=== PATIENT | male | born 1955 | race Caucasian/White ===

== ENCOUNTER 2017-09-03 14:02 | Emergency (ER) | payer MEDICARE, MEDICAID ==
[~2017-09-03] VITALS: Ht 167.6 cm; Wt 75.0 kg
[2017-09-03 14:42] LABS: HEMATOCRIT 43.6 % (39.2-51.8); HEMOGLOBIN 14.9 g/dL (13.7-18.0); WHITE BLOOD COUNT 8.2 x10^3/uL (3.4-10)
[2017-09-03 14:47] LABS: ASPARTATE AMINO TRANSFERASE 23 U/L (15-37); BLOOD UREA NITROGEN 19 mg/dL (7-18)
[2017-09-03 18:05] VITALS: BP 135/90
[2017-09-03] MEDS ORDERED: LISI-167 PO (18:30)
== END 2017-09-03 18:10 | disposition home or self-care (01) ==
LOC: ED 16:56
DX: N30.01 Acute cystitis with hematuria (principal); I10 Essential (primary) hypertension
CPT/HCPCS: 36415; 80053; 81001; 85025; 87077; 87086; 99284

== ENCOUNTER 2018-10-25 13:01 | Observation (INO) | payer MEDICARE, MEDICAID ==
[~2018-10-25] VITALS: Ht 172.7 cm; Wt 71.9 kg
[~2018-10-25 13:01] MED LIST: LISI-167 PO
[2018-10-25] MEDS ORDERED: SODIUM CHLORIDE FLUSH 10ML SYR IVF ONE (13:30)
[2018-10-25] MEDS ORDERED: NITROGLYCERIN SINGLE TAB 0.4 MG SL PRN (13:30)
[2018-10-25] MEDS ORDERED: ASPIRIN 81 MG TABLET CHEW PO ONE (13:30)
--- NOTE | 2018-10-25 13:39 | NUR ---
PT DENIES CP BUT POINTS TO HIS NECK SAYING IT IS SORE AT THIS TIME. PT ON MONITOR. EKG BEING REPEATED.
[2018-10-25] MEDS ORDERED: ASPIRIN 81 MG TABLET EC ONE (13:41)
[2018-10-25] MEDS ORDERED: ASPIRIN 81 MG TABLET CHEW ONE (13:42)
--- NOTE | 2018-10-25 13:50 | NUR ---
PT BIB [facility] AFTER CALLING [facility]D AND WAS TOLD TO COME TO ER FOR PT'S SYMPTOMS OF CP SINCE YESTERDAY.
[2018-10-25 14:13] LABS: BASOPHILS # (AUTO) 0.11 x10^3/uL (0-0.1); BASOPHILS % (AUTO) 2 % (0-1); EOSINOPHILS # (AUTO) 0.22 x10^3/uL (0-0.4); EOSINOPHILS % (AUTO) 3 % (1-7); LYMPHOCYTES # (AUTO) 2.25 x10^3/uL (1-3.4); LYMPHOCYTES % (AUTO) 29 % (22-44); MD NO; MEAN CORPUSCULAR HEMOGLOBIN 29.9 pg (27.5-34.5); MEAN CORPUSCULAR HGB CONC 33.2 g/dL (33.2-36.2); MEAN PLATELET VOLUME 7.3 fL (7.4-10.4); MONOCYTES # (AUTO) 0.48 x10^3/uL (0.2-0.8); MONOCYTES % (AUTO) 6 % (2-9); NEUTROPHILS # (AUTO) 4.68 x10^3/uL (1.8-6.8); NEUTROPHILS % (AUTO) 61 % (42-75); PLATELET COUNT 263 x10^3/uL (130-400); RED BLOOD COUNT 4.71 x10^6/uL (4.38-5.82); RED CELL DISTRIBUTION WIDTH 13.5 % (9.4-14.8)
[2018-10-25 14:20] LABS: ALANINE AMINOTRANSFERASE 20 U/L (12-78); ALBUMIN 4.3 g/dL (3.4-5.0); ANION GAP 8 mmol/L (5-15); CALCIUM 9.2 mg/dL (8.5-10.1); CHLORIDE 105 mmol/L (98-107); CREATININE 1.02 mg/dL (0.7-1.3)
[2018-10-25 14:25] LABS: ALKALINE PHOSPHATASE 62 U/L (45-117); BILIRUBIN,TOTAL 0.5 mg/dL (0.2-1.0); TOTAL PROTEIN 7.8 g/dL (6.4-8.2); TROPONIN I < 0.015 ng/mL (0.000-0.045)
[2018-10-25 14:44] LABS: D-DIMER < 0.19 ug/mlFEU (0.00-0.52); INTERNATIONAL NORMALIZED RATIO 1.02 (0.93-1.1); PARTIAL THROMBOPLASTIN TIME 29 Seconds (25-31); PROTHROMBIN TIME 10.8 Seconds (9.6-11.5)
--- NOTE | 2018-10-25 15:05 | NUR ---
CHART UP FOR MD RECHECK. PT AWARE AND CAREGIVER AWARE.
[2018-10-25] MEDS ORDERED: SODIUM CHLORIDE FLUSH 10ML SYR IVF PRN (15:30)
[2018-10-25] MEDS ORDERED: ONDANSETRON ODT 4 MG PO PRN (16:00)
[2018-10-25] MEDS ORDERED: DOCUSATE 100 MG CAPSULE PO PRN (16:00)
[2018-10-25] MEDS ORDERED: ACETAMINOPHEN 325 MG TABLET PO PRN (16:00)
[2018-10-25] MEDS ORDERED: ONDANSETRON 2MG/ML, 2ML IVPush PRN (16:00)
[2018-10-25] MEDS ORDERED: ENALAPRILAT 1.25 MG/ML, 2ML IVPush PRN (16:00)
[2018-10-25] MEDS ORDERED: MAALOX/HYOSCYAMINE/LIDOCAINE 45 ML BTL PO ONE (16:00)
[2018-10-25] MEDS ORDERED: POLYETHYLENE GLYCOL 17 GM PACKET PO PRN (16:00)
[2018-10-25] MEDS ORDERED: BISACODYL 10 MG SUPP PR PRN (16:00)
[2018-10-25] MEDS ORDERED: ENOXAPARIN 40 MG/0.4 ML ONE (16:08)
[2018-10-25] MEDS ORDERED: MAALOX/HYOSCYAMINE/LIDOCAINE 45 ML BTL ONE (16:08)
[2018-10-25] MEDS: ENOXAPARIN 40 MG/0.4 ML SQ SCH (16:14)
[2018-10-25 16:32] LABS: THYROID STIMULATING HORMONE 0.66 mIU/L (0.358-3.740)
--- NOTE | 2018-10-25 16:55 | NUR ---
PT UP TO RESTROOM WITH STEADY GAIT. VSS.
[2018-10-25 17:12] LABS: TROPONIN I < 0.015 ng/mL (0.000-0.045)
--- NOTE | 2018-10-25 17:55 | NUR ---
PT GIVEN MEAL TRAY. WAITING FOR TELE BED. SISTER STILL AT BEDSIDE. PT DENIES CP. VSS.
--- NOTE | 2018-10-25 18:45 | NUR ---
PT RESTING IN BED IN NAD. PT DENEIS ANY CP. WAITING FOR TELE BED STILL.
[2018-10-25 19:20] VITALS: BP 173/108
[2018-10-25 19:46] VITALS: BP 173/108
[2018-10-25 20:17] LABS: TROPONIN I < 0.015 ng/mL (0.000-0.045)
[2018-10-25] MEDS: FAMOTIDINE 20 MG TABLET PO SCH (21:45)
[2018-10-25 23:39] VITALS: BP 127/80
[2018-10-26 00:34] VITALS: BP 128/82
[2018-10-26] MEDS: ASPIRIN 325 MG TABLET EC PO SCH (05:27)
[2018-10-26 05:49] LABS: CHOL/HDL RATIO 5.7; LDL/HDL RATIO 4.1 (0.5-3.0)
[2018-10-26 07:27] VITALS: BP 120/77
[2018-10-26] MEDS: FAMOTIDINE 20 MG TABLET PO SCH ×2 (07:53→20:05)
[2018-10-26] MEDS: LISINOPRIL 10 MG TABLET PO SCH (07:54)
[2018-10-26] MEDS ORDERED: REGADENOSON 0.4 MG/5 ML SYRINGE ONE (08:54)
[2018-10-26 09:05] LABS: BASOPHILS # (AUTO) 0.05 x10^3/uL (0-0.1); BASOPHILS % (AUTO) 1 % (0-1); EOSINOPHILS # (AUTO) 0.18 x10^3/uL (0-0.4); EOSINOPHILS % (AUTO) 2 % (1-7); LYMPHOCYTES # (AUTO) 2.08 x10^3/uL (1-3.4); LYMPHOCYTES % (AUTO) 27 % (22-44); MD NO; MEAN CORPUSCULAR HEMOGLOBIN 30.2 pg (27.5-34.5); MEAN CORPUSCULAR HGB CONC 33.5 g/dL (33.2-36.2); MEAN CORPUSCULAR VOLUME 90.3 fL (81-97); MEAN PLATELET VOLUME 7.8 fL (7.4-10.4); MONOCYTES # (AUTO) 0.44 x10^3/uL (0.2-0.8); MONOCYTES % (AUTO) 6 % (2-9); NEUTROPHILS # (AUTO) 4.88 x10^3/uL (1.8-6.8); NEUTROPHILS % (AUTO) 64 % (42-75); PLATELET COUNT 245 x10^3/uL (130-400); RED BLOOD COUNT 4.57 x10^6/uL (4.38-5.82); RED CELL DISTRIBUTION WIDTH 13.6 % (9.4-14.8)
[2018-10-26 09:47] LABS: ALANINE AMINOTRANSFERASE 19 U/L (12-78); ALBUMIN 4.1 g/dL (3.4-5.0); ANION GAP 6 mmol/L (5-15); CALCIUM 9.3 mg/dL (8.5-10.1); CHLORIDE 107 mmol/L (98-107); CREATININE 1.08 mg/dL (0.7-1.3)
[2018-10-26 09:49] LABS: ALKALINE PHOSPHATASE 50 U/L (45-117); BILIRUBIN,TOTAL 0.7 mg/dL (0.2-1.0); TOTAL PROTEIN 7.7 g/dL (6.4-8.2)
[2018-10-26 12:22] VITALS: BP 125/87
[2018-10-26] MEDS: ENOXAPARIN 40 MG/0.4 ML SQ SCH (15:58)
[2018-10-26] MEDS ORDERED: FAMO20TA7 PO (17:20)
[2018-10-26 19:12] VITALS: BP 112/77
[2018-10-27 00:19] VITALS: BP 120/69
[2018-10-27] MEDS: ASPIRIN 325 MG TABLET EC PO SCH (05:48)
[2018-10-27 07:06] VITALS: BP 105/61
[2018-10-27] MEDS: FAMOTIDINE 20 MG TABLET PO SCH (08:04)
[2018-10-27] MEDS: LISINOPRIL 10 MG TABLET PO SCH (08:05)
== END 2018-10-27 10:16 | disposition home or self-care (01) ==
LOC: ED 14:33 → INTOOBSV 15:21 → EDIP 15:21 → 5SO 19:21
PROVIDERS: ADMIT Hospitalist; ATTEND Hospitalist
DX: R07.89 Other chest pain (principal); I10 Essential (primary) hypertension; I45.10 Unspecified right bundle-branch block
CPT/HCPCS: 36415; 71045; 78452; 80053; 80061; 83690; 83735; 83880; 84100; 84443; 84484; 85025; 85379; 85610; 85730; 93005; 93017; 93306; 96372; 96374; 99284; A9502; C9898; G0378; J1650; J2405; J2785